=== PATIENT | female | born 1950 | race Caucasian/White ===

== ENCOUNTER 2017-06-25 13:22 | Observation (INO) ==
[2017-06-25] MEDS ORDERED: Ondansetron 4 MG/2 ML VIAL IVP ONE (13:33)
[2017-06-25] MEDS ORDERED: Levofloxacin 750 MG/150 ML 750 MG/150 ML BAG IVPB ONE (13:33)
[2017-06-25] MEDS ORDERED: 0.9 % Sodium Chloride 1,000 ML IVC ONE ×2 (13:33→15:13)
--- NOTE | 2017-06-25 13:33 | Emergency Department Note ---
Disposition Clinical Impression: COPD exacerbation, Gastroenteritis, Lactic acid increased Disposition: Admitted As Inpatient Condition: Fair Referrals: Rodger Lal, SL[employer] MACHINE OPERATOR [Primary Care Provider] - Forms: ED Satisfaction Letter Nausea/Vomiting/Diarrhea HPI - General Chief complaint: ED Nausea/Vomiting/Diarrhea Stated complaint: fever, vomiting and diarrea Time Seen by Provider: 06/25/17 13:28 Source: patient, family Mode of arrival: private vehicle Limitations: no limitations, physical limitation Nursing Notes Reviewed: Yes Vital Signs Reviewed: Yes - History of Present Illness HPI Narrative: Patient relates that she has had an upper respiratory infection with cough for about 2-3 weeks. This is seen to be worse last 3-4 days. She has had shortness of breath has been using her usual aerosols. Since 6 AM she has been having frequent vomiting and diarrhea. She states emesis and stool without blood but she has had a feeling of weakness and dizziness with standing. She also has had a feeling of fevers and chills. She denies chest pain, back pain or urinary troubles. She denies any known ill exposures nor any concern for food borne illness, recent travel or any recent antibiotics. She denies any abdominal pain and cramping with her vomiting and diarrhea. With her progressive dyspnea, fever, malaise and dizziness she has presented with family for evaluation. Pt Subjective Complaint: nausea, vomiting, diarrhea Onset (ago): hour(s) Description of emesis: watery Description of Diarrhea: water Associated Abdominal Pain: No Consistency: intermittent Improves with: nothing Worsens with: eating Associated symptoms: Reports: myalgias, cough, fever/chills, loss of appetite, malaise, nausea/vomiting, shortness of breath, syncope (presyncopal), weakness. Denies: chest pain, diaphoresis, headaches, rash, dysuria - Related Data Home Medications Medication Instructions Recorded Confirmed Canagliflozin [Invokana] 100 mg PO QAM 04/23/15 08/16/15 Clopidogrel [Plavix] 75 mg PO DAILY 04/23/15 08/16/15 Isosorbide MONOnitrate (24 HR) 30 mg PO DAILY 04/23/15 08/16/15 [Imdur] Lisinopril [Zestril] 40 mg PO DAILY 04/23/15 08/16/15 Lovastatin [Altoprev] 40 mg PO QAM 04/23/15 08/16/15 Metoprolol XL (24 HR) Succ [Toprol 25 mg PO DAILY 04/23/15 08/16/15 XL] Omeprazole [Prilosec] 40 mg PO QAM 04/23/15 08/16/15 Tiotropium [Spiriva] 18 mcg IH 0700 04/23/15 08/16/15 metFORMIN [Glucophage] 500 PO BID 08/22/15 Fluticasone/Salmeterol [Advair 1 each IH 06/25/17 500-50 Diskus] Inscruseelip 1 IH DAILY 06/25/17 Metoprolol Succinate/Hctz 1 each PO 06/25/17 [Metoprolol ER-Hctz 25-12.5 mg] Multivit #34/FA/Nadh/Ubiquinon 06/25/17 [Xyzbac Tablet] Previous Rx's Medication Instructions Recorded Albuterol Sulfate [Albuterol 2 puff IH Q4HR #1 hfa.aer.ad 04/22/17 Inhaler] Allergies Allergy/AdvReac Type Severity Reaction Status Date / Time No Known Allergies Allergy Verified 04/22/17 13:25 All systems ED: reviewed and negative except as stated. Past Medical History - Past Medical History Attestation: Yes The following information was validated with the patient. Source: patient, old records reviewed, nursing notes reviewed Medical history: Reports: COPD, coronary artery disease, diabetes (Non-insulin- dependent), GERD, hyperlipidemia, hypertension Surgical history: Reports: angioplasty/stent, other (Nasal septum surgery, ear tubes), vascular surgery (Aortic aneurysm repair with endograft 2009) Psychiatric history: Reports: no psych history - Social History Smoking Status: Never smoker Smokeless Tobacco Status: No Alcohol use: Reports: none Drug use: Reports: none Physical Exam - General Limitations: physical limitation General appearance: alert, in distress - Head Head exam: atraumatic, normocephalic, normal inspection - Eye Eye exam: Present: normal appearance, PERRL, EOMI. Absent: scleral icterus, conjunctival injection - ENT ENT exam: normal exam, normal oropharynx, mucous membranes dry - Neck Neck exam: Present: normal inspection, full ROM, trachea midline. Absent: tenderness, meningismus, lymphadenopathy - Chest Chest inspection: Present: normal inspection, symmetric chest wall rise. Absent : tenderness - Respiratory Respiratory exam: Present: respiratory distress, prolonged expiratory phase, other (Diminished breath sounds). Absent: wheezes, stridor, accessory muscle use - Cardiovascular Cardiovascular exam: Present: regular rate, normal rhythm, tachycardia, normal heart sounds - Abdominal Exam Abdominal exam: Present: soft, Non-Tender, normal bowel sounds. Absent: tenderness, distention, guarding, rebound, rigidity, hyperactive bowel sounds, Rivero's sign, tenderness at McBurney's Point, pulsatile mass, hernia - Extremities Exam Extremities exam: Present: normal inspection, full ROM, normal capillary refill. Absent: tenderness, pedal edema, calf tenderness - Expanded Lower Extremity Exam Neurovascular/Tendon exam: Present: normal capillary refill. Absent: motor deficit, sensory deficit, tendon deficit Gait: observed and normal - Back Exam Back exam: Present: normal inspection, full ROM. Absent: tenderness - Neurological Exam Neurological exam: Present: alert, oriented X3, normal gait. Absent: motor sensory deficit - Psychiatric Psychiatric exam: Present: normal affect, normal mood - Skin Skin exam: Present: warm, dry, intact, normal color. Absent: cyanosis, diaphoresis, pallor Course Course Narrative: 1435: Lab is advising they are doing maintenance on the chemistry analyzer and it will be at least another 45 minutes for lab results. 1545: Return of all lab tests, care has been discussed with Dr. Hernández and verbal orders have been obtained for her observation Vital Signs Temperature 103.6 F H 06/25/17 13:30 Pulse Rate 115 06/25/17 13:30 Respiratory Rate 26 06/25/17 13:30 Blood Pressure 157/87 06/25/17 13:30 O2 Sat by Pulse Oximetry 86 06/25/17 13:30 Temperature 103.6 F H 06/25/17 13:30 Pulse Rate 105 06/25/17 15:04 Respiratory Rate 21 06/25/17 15:04 Blood Pressure 83/60 06/25/17 15:04 O2 Sat by Pulse Oximetry 90 06/25/17 15:04 Oxygen Delivery Oxygen Delivery Nasal Cannula Nausea/Vomiting/Diarrhea - Differential Diagnosis Likely: gastroenteritis, dehydration - Medical Records Medical records reviewed: Yes I reviewed the patient's medical records. - Lab Data Lab results reviewed: Yes I reviewed the patient's lab results. Result diagrams: 06/25/17 13:57 06/25/17 13:57 Lab Results 06/25/17 06/25/17 06/25/17 Range/Units 13:57 13:57 13:57 WBC 10.1 (4.3-11.1) K/mcL RBC 5.06 H (3.82-4.97) M/mcL Hgb 15.3 (11.5-15.4) g/dL Hct 46.6 H (35.3-44.9) % MCV 92.1 (83.0-100.0) fL MCH 30.2 (28.0-33.3) pg MCHC 32.8 (31.6-35.5) g/dL RDW 14.4 (11.5-14.5) % Plt Count 238 (140-400) K/mcL MPV 10.4 (9.4-12.4) fL Immature Gran % 0.6 (0-4) % Seg Neutrophils % 91.1 % Lymphocytes % 5.7 % Monocytes % 2.3 % Eosinophils % 0.1 % Basophils % 0.2 % Neutrophils # 9.2 H (1.6-8.9) K/mcL Lymphocytes # 0.6 (0.6-4.6) K/mcL Monocytes # 0.2 (0.0-1.3) K/mcL Eosinophils # 0.0 (0.0-0.6) K/mcL Basophils # 0.0 (0.0-0.2) K/mcL Sodium 139 (136-145) mEq/L Potassium 4.4 (3.5-5.1) mEq/L Chloride 105 (98-107) mEq/L Carbon Dioxide 20 L (23-29) mEq/L BUN 22 (8-23) mg/dL Creatinine 0.73 (0.60-1.20) mg/dL Est GFR ( Amer) > 60 (> 60) Est GFR (Non-Af Amer) > 60 (> 60) BUN/Creatinine Ratio 30 H (6-26) Glucose 203 H (70-105) mg/dL Calculated Osmolality 297 (280-300) Lactic Acid (0.5-2.2) mmol/L Calcium 10.0 (8.6-10.3) mg/dL Total Bilirubin 0.6 (0.3-1.0) mg/dL AST 11 L (13-39) Units/L ALT 13 (7-52) Units/L Alkaline Phosphatase 70 (34-104) Units/L Troponin I < 0.03 (< 0.04) ng/mL Serum Total Protein 7.1 (6.4-8.9) g/dL Albumin 4.4 (3.5-5.7) g/dL Globulin 2.7 (2.4-3.5) g/dL Albumin/Globulin Ratio 1.6 (1.1-2.2) Lipase 112 H (11-82) Units/L Urine Color (Yellow) Urine Clarity (Clear) Urine pH (5.0-8.0) pH Units Ur Specific [place] (1.010-1.025) Urine Protein (Neg-Trace) mg/dL Urine Glucose (UA) (Normal) mg/dL Urine Ketones (Negative) mg/dL Urine Blood (Negative) Urine Nitrite (Negative) Urine Bilirubin (Negative) Urine Urobilinogen (Normal) mg/dL Ur Leukocyte Esterase (Negative) Urine Microscopic WBC (0-3) per hpf Ur Squamous Epith Cells (None-Few) per lpf Ur Culture Indicated? (NO) 06/25/17 06/25/17 Range/Units 13:58 14:29 WBC (4.3-11.1) K/mcL RBC (3.82-4.97) M/mcL Hgb (11.5-15.4) g/dL Hct (35.3-44.9) % MCV (83.0-100.0) fL MCH (28.0-33.3) pg MCHC (31.6-35.5) g/dL RDW (11.5-14.5) % Plt Count (140-400) K/mcL MPV (9.4-12.4) fL Immature Gran % (0-4) % Seg Neutrophils % % Lymphocytes % % Monocytes % % Eosinophils % % Basophils % % Neutrophils # (1.6-8.9) K/mcL Lymphocytes # (0.6-4.6) K/mcL Monocytes # (0.0-1.3) K/mcL Eosinophils # (0.0-0.6) K/mcL Basophils # (0.0-0.2) K/mcL Sodium (136-145) mEq/L Potassium (3.5-5.1) mEq/L Chloride (98-107) mEq/L Carbon Dioxide (23-29) mEq/L BUN (8-23) mg/dL Creatinine (0.60-1.20) mg/dL Est GFR ( Amer) (> 60) Est GFR (Non-Af Amer) (> 60) BUN/Creatinine Ratio (6-26) Glucose (70-105) mg/dL Calculated Osmolality (280-300) Lactic Acid 3.7 H (0.5-2.2) mmol/L Calcium (8.6-10.3) mg/dL Total Bilirubin (0.3-1.0) mg/dL AST (13-39) Units/L ALT (7-52) Units/L Alkaline Phosphatase (34-104) Units/L Troponin I (< 0.04) ng/mL Serum Total Protein (6.4-8.9) g/dL Albumin (3.5-5.7) g/dL Globulin (2.4-3.5) g/dL Albumin/Globulin Ratio (1.1-2.2) Lipase (11-82) Units/L Urine Color Yellow (Yellow) Urine Clarity Clear (Clear) Urine pH 5.0 (5.0-8.0) pH Units Ur Specific [place] 1.020 (1.010-1.025) Urine Protein 30 H (Neg-Trace) mg/dL Urine Glucose (UA) 500 H (Normal) mg/dL Urine Ketones 15 H (Negative) mg/dL Urine Blood Negative (Negative) Urine Nitrite Negative (Negative) Urine Bilirubin Negative (Negative) Urine Urobilinogen Normal (Normal) mg/dL Ur Leukocyte Esterase Negative (Negative) Urine Microscopic WBC 0-3 (0-3) per hpf Ur Squamous Epith Cells Few (None-Few) per lpf Ur Culture Indicated? NO (NO) - Radiology Data Radiology results reviewed: Yes I reviewed the patient's radiology results. Single view chest x-ray is performed. This does not demonstrate evidence for infiltrate, effusion, pneumothorax, foreign body or heart failure. The cardiac silhouette is normal. I do not see abnormality to the osseous structures of the chest. This is on my interpretation. Impressions Chest X-Ray 06/25/17 13:34 IMPRESSION: Stable appearance of the chest without acute cardiopulmonary process identified. D/ / 06/25/2017 14:20:02 Alfonzo Rockwell MD / aniyah Interpreting Provider: Alfonzo Rockwell MD - EKG Data EKG attestation: Yes I reviewed and interpreted this EKG. EKG shows normal: sinus rhythm, axis, intervals, QRS complexes Rate: tachycardia (109) ST segment depression in: II, aVF, v2, v3, v4, v5 Interpretation: nonspecific ST-T wave changes (Inferior lateral ST changes slightly increased from comparison EKG from 2014.)
[2017-06-25] MEDS ORDERED: Ipratropium/Albuterol Neb 3 ML IH ONE (13:34)
[2017-06-25] MEDS ORDERED: Diphenoxylate/Atropine 1 TAB TABLET PO ONE (13:34)
[2017-06-25] MEDS ORDERED: methylPREDNISolone 125 MG/2 ML VIAL IVP ONE (13:34)
[2017-06-25] MEDS ORDERED: Acetaminophen 325 MG TABLET PO ONE (13:38)
[2017-06-25 14:07] LABS: Basophils % 0.2 %; Eosinophils % 0.1 %; Hematocrit 46.6 % (35.3-44.9); Hemoglobin 15.3 g/dL (11.5-15.4); Immature Granulocytes % 0.6 % (0-4); Lymphocytes # 0.6 K/mcL (0.6-4.6); Lymphocytes % 5.7 %; Mean Corpuscular HGB Conc 32.8 g/dL (31.6-35.5); Mean Corpuscular Hemoglobin 30.2 pg (28.0-33.3); Mean Corpuscular Volume 92.1 fL (83.0-100.0); Mean Platelet Volume 10.4 fL (9.4-12.4); Monocytes # 0.2 K/mcL (0.0-1.3); Monocytes % 2.3 %; Neutrophils # 9.2 K/mcL (1.6-8.9); Platelet Count 238 K/mcL (140-400); Red Blood Count 5.06 M/mcL (3.82-4.97); Red Cell Distribution Width 14.4 % (11.5-14.5); Segmented Neutrophils % 91.1 %
[2017-06-25 14:33] LABS: Bilirubin,Urine Negative (Negative); Blood,Urine Negative (Negative); Clarity,Urine Clear (Clear); Color,Urine Yellow (Yellow); Glucose,Urine (UA) 500 mg/dL (Normal); Ketones,Urine 15 mg/dL (Negative); Leukocyte Esterase,Urine Negative (Negative); Nitrite,Urine Negative (Negative); Protein,Urine 30 mg/dL (Neg-Trace); Urobilinogen,Urine Normal (Normal)
[2017-06-25 14:48] LABS: Squamous Epithelial Cell,Urine Few per lpf (None-Few); WBC,Urine 0-3 per hpf (0-3)
[2017-06-25] MEDS ORDERED: 0.9 % Sodium Chloride 1,000 ML IVC SCH (15:15)
[2017-06-25 15:23] LABS: Alanine Aminotransferase 13 Units/L (7-52); Albumin 4.4 g/dL (3.5-5.7); Albumin/Globulin Ratio 1.6 (1.1-2.2); Alkaline Phosphatase 70 Units/L (34-104); Aspartate Amino Transferase 11 Units/L (13-39); BUN/Creatinine Ratio 30 (6-26); Bilirubin,Total 0.6 mg/dL (0.3-1.0); Blood Urea Nitrogen 22 mg/dL (8-23); Carbon Dioxide 20 mEq/L (23-29); Chloride 105 mEq/L (98-107); Globulin 2.7 g/dL (2.4-3.5); Glucose 203 mg/dL (70-105); Lipase 112 Units/L (11-82); Osmolality,Calculated 297 (280-300); Potassium 4.4 mEq/L (3.5-5.1); Sodium 139 mEq/L (136-145); Total Protein 7.1 g/dL (6.4-8.9); eGFR For African Americans > 60 (> 60); eGFR For Non-African Americans > 60 (> 60)
[2017-06-25] MEDS ORDERED: Ondansetron 4 MG/2 ML VIAL IVP PRN ×2 (17:11→20:28)
[2017-06-25] MEDS ORDERED: Diphenoxylate/Atropine 1 TAB TABLET PO PRN (17:11)
[2017-06-25] MEDS ORDERED: Ibuprofen 400 MG TABLET PO PRN (17:11)
[2017-06-25] MEDS ORDERED: Acetaminophen 325 MG TABLET PO PRN (17:11)
[2017-06-25] MEDS ORDERED: Naloxone 0.4 MG/ML INJ IVP PRN (17:11)
[2017-06-25] MEDS ORDERED: Albuterol 2.5 MG/3 ML NEBULIZER IH PRN (17:11)
[2017-06-25] MEDS ORDERED: 0.9 % Sodium Chloride 250 ML IVC SCH (18:00)
[2017-06-25] MEDS: Ipratropium/Albuterol Neb 3 ML IH SCH ×2 (18:14→21:09)
--- NOTE | 2017-06-25 20:19 | Internal Med History&Physical ---
Date of Encounter: 06/25/17 Time of Encounter: 19:50 Assessment and Plan (1) COPD exacerbation Current visit: Yes Status: Acute She has been started on IV Levaquin and prednisone. DuoNeb nebs have been ordered. I will add lactobacillus. (2) Gastroenteritis Current visit: Yes Status: Acute She will be given IV fluids and prn anti-emetics. (3) Hypertension Current visit: Yes Status: Chronic Blood pressure medications will be held since she has borderline hypotension. Qualifiers: Hypertension type: essential hypertension Qualified Code(s): I10 - Essential (primary) hypertension Internal Medicine - H&P: HPI Chief complaint: Vomiting, diarrhea, chills Admitted From: Emergency Dept Plans for Post Hospital Care: Home History of present illness: Ms. Brown is a 67 year old female who came to emergency room stating she had 2 -3 week history of cough with minimal productivity. She developed fevers and chills earlier today and had nausea vomiting and diarrhea 8-10 times in the hours preceding coming to the emergency room. She was evaluated in the ER and felt to have exacerbation of COPD and possible gastroenteritis. She was admitted to [facility] floor for ongoing care needs. Respiratory history significant for having smoked from age [age] up to 1 pack per day. She does not recall PFTs but states she has been diagnosed with COPD per chest does not wear home oxygen. Her GI history is pertinent for GERD. She denies disorders of her liver gallbladder or exocrine pancreas. Past Med Surg Social Fam HX - Past Medical History Medical history: COPD, coronary artery disease, diabetes, GERD, hyperlipidemia, hypertension Psychiatric history: no psych history - Past Surgical History Surgical History: angioplasty/stent, other, vascular surgery - Social History Smoking Status: Never smoker Smokeless Tobacco Status: No Alcohol use: none Drug use: none - Family History Father Living Status: Hx Family Cardiac Disorders: Yes Internal Medicine - H&P: Meds Canagliflozin [Invokana] 100 mg PO QAM 04/23/15 [History] Clopidogrel [Plavix] 75 mg PO DAILY 04/23/15 [History] Isosorbide MONOnitrate (24 HR) [Imdur] 30 mg PO DAILY 04/23/15 [History] Lisinopril [Zestril] 40 mg PO DAILY 04/23/15 [History] Lovastatin [Altoprev] 40 mg PO QAM 04/23/15 [History] Metoprolol XL (24 HR) Succ [Toprol XL] 25 mg PO DAILY 04/23/15 [History] Omeprazole [Prilosec] 40 mg PO QAM 04/23/15 [History] Tiotropium [Spiriva] 18 mcg IH 0700 04/23/15 [History] metFORMIN [Glucophage] 500 PO BID 08/22/15 [History] Albuterol Sulfate [Albuterol Inhaler] 2 puff IH Q4HR #1 hfa.aer.ad 04/22/17 [Rx] Fluticasone/Salmeterol [Advair 500-50 Diskus] 1 each IH 06/25/17 [History] Inscruseelip 1 IH DAILY 06/25/17 [History] Metoprolol Succinate/Hctz [Metoprolol ER-Hctz 25-12.5 mg] 1 each PO 06/25/17 [ History] Multivit #34/FA/Nadh/Ubiquinon [Xyzbac Tablet] 06/25/17 [History] 3 Allergy/AdvReac Type Severity Reaction Status Date / Time No Known Allergies Allergy Verified 04/22/17 13:25 All Systems PM: A 10-system review of systems was performed and is negative for pertinent findings except as documented above in the HPI. Review of systems: Gen.: She states her weight is stable past few months Cardiovascular: She has history of hypertension. She has known ASHD with single cardiac stent placed in 2007. She had aortic arch aneurysm endograft in 2009. She denies heart failure DVT or pulmonary embolus. She gets dyspneic on exertion Respiratory: As per history of present illness GI: As per history of present illness : She denies hematuria dysuria or kidney stones Neurologic: She denies large distribution strokes or seizures. Endocrine: She was diagnosed with DM2 approximately 2010. She has hyperlipidemia but denies thyroid disease Hematology/oncology: She denies blood disorders cancers or anemia Psychiatric: She denies anxiety or depression or other mental health issues Muscle skeletal: She denies arthritis gout or other bone joint or muscle disorders. - Constitutional Vitals: Temp Pulse Resp BP Pulse Ox 99.0 F 89 16 99/63 94 06/25/17 17:51 06/25/17 17:51 06/25/17 17:51 06/25/17 19:23 06/25/17 17:57 Exam: General: She is a well developed well nourished female lying in bed who appears in minimal distress at present time HEENT: Head is atraumatic and normocephalic. Eyes: EOMI. There is no scleral icterus. Mouth: Mucosa is moist. Neck: Supple and nontender. There is no thyromegaly or adenopathy noted. Heart: Regular without murmurs gallops or ectopics Lungs: No wheezes or crackles are heard. She has diminished breath sounds diffusely. Abdomen: Soft and nontender. No masses or guarding are noted. Extremities: There is no cyanosis edema or clubbing noted. Dorsalis pedis and posterior tibial pulses are trace to 1+ bilaterally. Neurologic: Mental status: She is talkative and a good historian. Cranial nerves: Smile is symmetric. Forehead wrinkles bilaterally. Tongue protrudes midline. EOMI. Motor: There is no pronator drift. Cerebellar: Finger to nose is intact bilaterally. Skin: Warm and dry Internal Med - H&P Results - Labs CBC & Chem 7: 06/25/17 13:57 06/25/17 13:57
[2017-06-25] MEDS: 0.9 % Sodium Chloride 1,000 ML IVC SCH (21:40)
[2017-06-25] MEDS: Lactobacillus 1 EACH CAP.SPRINK PO SCH (21:40)
[2017-06-25] MEDS: predniSONE 20 MG TABLET PO SCH (21:40)
[2017-06-26] MEDS: Ipratropium/Albuterol Neb 3 ML IH SCH ×2 (04:19→10:22)
[2017-06-26 04:52] LABS: Hematocrit 34.5 % (35.3-44.9); Hemoglobin 11.1 g/dL (11.5-15.4); Immature Granulocytes % 0.4 % (0-4); Lymphocytes # 0.4 K/mcL (0.6-4.6); Lymphocytes % 5.5 %; Mean Corpuscular HGB Conc 32.2 g/dL (31.6-35.5); Mean Corpuscular Hemoglobin 29.8 pg (28.0-33.3); Mean Corpuscular Volume 92.7 fL (83.0-100.0); Mean Platelet Volume 10.7 fL (9.4-12.4); Monocytes # 0.1 K/mcL (0.0-1.3); Monocytes % 1.6 %; Neutrophils # 6.8 K/mcL (1.6-8.9); Platelet Count 168 K/mcL (140-400); Red Blood Count 3.72 M/mcL (3.82-4.97); Red Cell Distribution Width 14.5 % (11.5-14.5); Segmented Neutrophils % 92.5 %
[2017-06-26] MEDS: 0.9 % Sodium Chloride 1,000 ML IVC SCH (04:59)
[2017-06-26 05:11] LABS: BUN/Creatinine Ratio 27 (6-26); Blood Urea Nitrogen 15 mg/dL (8-23); Calcium 8.5 mg/dL (8.6-10.3); Carbon Dioxide 21 mEq/L (23-29); Chloride 113 mEq/L (98-107); Glucose 176 mg/dL (70-105); Osmolality,Calculated 297 (280-300); Sodium 141 mEq/L (136-145); eGFR For African Americans > 60 (> 60); eGFR For Non-African Americans > 60 (> 60)
[2017-06-26 07:26] LABS: Platelet Estimate Normal (Normal)
[2017-06-26 08:10] VITALS: BP 111/71
[2017-06-26] MEDS: Lactobacillus 1 EACH CAP.SPRINK PO SCH (08:11)
[2017-06-26] MEDS: predniSONE 20 MG TABLET PO SCH (08:12)
[2017-06-26] MEDS ORDERED: Levofloxacin 750 MG/150 ML 750 MG/150 ML BAG IVPB SCH (09:00)
--- NOTE | 2017-06-26 09:10 | Discharge Summary ---
Date of Encounter: 06/26/17 Time of Encounter: 09:00 - Discharge Diagnosis (1) COPD exacerbation Priority: Primary Status: Acute (2) Gastroenteritis Priority: Secondary Status: Resolved (3) Hypertension Priority: Secondary Status: Chronic Qualifiers: Hypertension type: essential hypertension Qualified Code(s): I10 - Essential (primary) hypertension - Discharge Medications Prescriptions: Lactobacillus [Culturelle] 1 each PO BID #4 cap.sprink levoFLOXacin [Levaquin] 500 mg PO DAILY #2 tablet Home Medications: Canagliflozin [Invokana] 100 mg PO QAM 04/23/15 [History] Clopidogrel [Plavix] 75 mg PO DAILY 04/23/15 [History] Isosorbide MONOnitrate (24 HR) [Imdur] 30 mg PO DAILY 04/23/15 [History] Lovastatin [Altoprev] 40 mg PO QAM 04/23/15 [History] Metoprolol XL (24 HR) Succ [Toprol Xl] 25 mg PO DAILY 04/23/15 [History] Omeprazole [PriLOSEC] 40 mg PO QAM 04/23/15 [History] Tiotropium [Spiriva] 18 mcg IH 0700 04/23/15 [History] metFORMIN [Glucophage] 500 PO BID 08/22/15 [History] Albuterol Sulfate [Albuterol Inhaler] 2 puff IH Q4HR #1 hfa.aer.ad 04/22/17 [Rx] Fluticasone/Salmeterol [Advair 500-50 Diskus] 1 each IH 06/25/17 [History] Inscruseelip 1 IH DAILY 06/25/17 [History] Metoprolol Succinate/Hctz [Metoprolol ER-Hctz 25-12.5 mg] 1 each PO 06/25/17 [ History] Multivit #34/FA/Nadh/Ubiquinon [Xyzbac Tablet] 06/25/17 [History] Lactobacillus [Culturelle] 1 each PO BID #4 cap.sprink 06/26/17 [Rx] levoFLOXacin [Levaquin] 500 mg PO DAILY #2 tablet 06/26/17 [Rx] Allergies/Adverse Reactions: 3 Allergy/AdvReac Type Severity Reaction Status Date / Time No Known Allergies Allergy Verified 04/22/17 13:25 Date of admission: 06/25/17 16:29 Primary care physician: Rodger Lal CNP - Patient Status Disposition: Home, Self-Care Condition: Fair Functional capacity at discharge: independent ambulation Overall status at discharge: patient is progressing back to baseline - Discharge Instructions Follow Up With: Rodger Lal CNP [Primary Care Provider] - 1 week - Diet and Activity Activity: resume usual activities as tolerated Diet: advance to your usual diet Hospital course: Ms. Brown is a 67 year old female who came to emergency room stating she had 2 -3 week history of cough with minimal productivity. She developed fevers and chills earlier today and had nausea vomiting and diarrhea 8-10 times in the hours preceding coming to the emergency room. She was evaluated in the ER and felt to have exacerbation of COPD and possible gastroenteritis. She was admitted to [facility] for ongoing care needs. Initial orders were written by the emergency room physician. I saw her on June 25 and performed a history and physical. She was started on IV Levaquin and oral prednisone through emergency room. She had no further vomiting or diarrhea after admission to [facility]. She was able to tolerate adequate amount of food and fluids. Blood pressure improved with IV fluids and withholding antihypertensive medications. When I saw her on June 26 she felt significantly improved and wished to be discharged home which I thought were reasonable. She will remain off lisinopril to avoid hypotension. She will continue with antibiotic and probiotic for 2 additional days at discharge. Room air oximetry will be checked on 6 minute walk prior to discharge. She will follow with her PCP Rodger Lal CNP within 1 week. - Time Spent with Patient Total time spent providing and/or coordinating discharge services: - Constitutional Vitals: Temp Pulse Resp BP Pulse Ox 97.7 F 88 17 111/71 90 06/26/17 06:59 06/26/17 08:09 06/26/17 06:59 06/26/17 08:09 06/26/17 06:59
--- NOTE | 2017-06-27 07:57 | Electrocardiograph Report ---
[address] [address] Test Date: 2017-06-25 Pat Name: Keena Brown Department: [id number] Room: [facility] Gender: F [employer] Supervisor: [id number] : 1950 Requested By: Marcio Nelson Order Number: [id number] Reading MD: Isac York MD Measurements Intervals Winder Rate: 109 P: 25 UT: 116 QRS: 25 QRSD: 81 T: 17 QT: 324 QTc: 388 Interpretive Statements SINUS TACHYCARDIA WITH SHORT UT INTERVAL LOW QRS VOLTAGE IN EXTREMITY LEADS Electronically Signed On 06-27-2017 7:19:52 EST by Isac York MD
[2017-06-28 20:37] LABS: Acinetobacter baumannii by PCR Not Detected (Not Detect); Enterococcus by PCR Not Detected (Not Detect); Klebsiella oxytoca by PCR Not Detected (Not Detect); Klebsiella pneumoniae by PCR Not Detected (Not Detect); Serratia marcescens by PCR Not Detected (Not Detect); Staphylococcus aureus by PCR Not Detected (Not Detect); Streptococcus agalactiae(B)PCR Not Detected (Not Detect); Streptococcus by PCR Not Detected (Not Detect); Streptococcus pneumoniae PCR Not Detected (Not Detect); Streptococcus pyogenes (A) PCR Not Detected (Not Detect); blaKPC Carbapenem-Resist Gene Not Detected (Not Detect)
[2017-06-28 20:38] LABS: Candida albicans by PCR Not Detected (Not Detect); Candida glabrata by PCR Not Detected (Not Detect); Candida krusei by PCR Not Detected (Not Detect); Candida parapsilosis by PCR Not Detected (Not Detect); Candida tropicalis by PCR Not Detected (Not Detect); Escherichia coli by PCR ***DETECTED*** (Not Detect); Pseudomonas aeruginosa by PCR Not Detected (Not Detect)
== END 2017-06-26 11:55 | disposition home or self-care (01) ==
LOC: INPPIK 13:22 → EMEROOPIK 13:22 → INPPIK 17:15
PROVIDERS: ADMIT Internal Medicine; ATTEND Internal Medicine